=== PATIENT | male | born 1980 | race American Indian/Alaskan Native ===

== ENCOUNTER 2017-09-18 05:08 | Observation (INO) | payer OTHER, SELFPAY ==
[2017-09-18] MEDS ORDERED: Sodium Chloride 0.9% 500 ML IV ONE ×2 (05:35→05:42)
--- NOTE | 2017-09-18 05:48 | C.PDOC ---
History Of Present Illness 36 year old male presents to the ED c/o abdominal pain for the past 4 days. Patient states pain was triggered by alcohol consumption and pain has worsened ever since. Patient is s/p laparoscopy cholecystectomy earlier this year. Patient denies fever, chills, nausea, vomit, diarrhea, back pain. Time Seen by Provider: 09/18/17 05:34 Chief Complaint (Nursing): Abdominal Pain History Per: Patient History/Exam Limitations: no limitations Onset/Duration Of Symptoms: Days (4) Current Symptoms Are (Timing): Still Present Context: Other Location Of Pain/Discomfort: Diffuse Radiation Of Pain To:: None Quality Of Discomfort: "Pain" Associated Symptoms: denies: Nausea, Vomiting, Diarrhea, Urinary Symptoms Exacerbating Factors: Other Alleviating Factors: None Recent travel outside of the [place]: No Additional History Per: Patient Past Medical History Reviewed: Historical Data, Nursing Documentation, Vital Signs Vital Signs: Last Vital Signs Temp 97.8 F 09/18/17 05:14 Pulse 84 09/18/17 05:14 Resp 14 09/18/17 05:14 BP 121/92 H 09/18/17 05:14 Pulse Ox 97 09/18/17 06:38 - Medical History PMH: Pancreatitis Denies: Chronic Kidney Disease Surgical History: Cholecystectomy Family History: States: Unknown Family Hx - Social History Hx Tobacco Use: Yes Hx Alcohol Use: Yes Hx Substance Use: No - Immunization History Hx Tetanus Toxoid Vaccination: No Hx Influenza Vaccination: No Hx Pneumococcal Vaccination: No Review Of Systems Constitutional: Negative for: Fever, Chills Cardiovascular: Negative for: Chest Pain Respiratory: Negative for: Shortness of Breath Gastrointestinal: Positive for: Abdominal Pain. Negative for: Nausea, Vomiting , Diarrhea Musculoskeletal: Negative for: Back Pain Skin: Negative for: Rash Physical Exam - Physical Exam Appears: Non-toxic, No Acute Distress Skin: Normal Color, Warm, Dry Head: Atraumatic, Normacephalic Eye(s): bilateral: Normal Inspection Oral Mucosa: Moist Neck: Normal ROM, Supple Chest: Symmetrical Cardiovascular: Rhythm Regular, No Murmur Respiratory: Normal Breath Sounds, No Rales, No Rhonchi, No Wheezing Gastrointestinal/Abdominal: Soft, Tenderness (diffuse), Distention, No Guarding , No Rebound Back: No CVA Tenderness Extremity: Normal ROM, No Tenderness, No Swelling Neurological/Psych: Oriented x3, Normal Speech Gait: Steady ED Course And Treatment - Laboratory Results Result Diagrams: 09/18/17 05:53 09/18/17 05:53 O2 Sat by Pulse Oximetry: 97 (ON RA) Pulse Ox Interpretation: Normal Progress Note: Plan: - Labs. - Pepcid 20 mg IVP. - IV fluids. - Zofran 4 mg IVP Reevaluation Time: 06:23 Reassessment Condition: Unchanged (Pt continue to have moderately diffuse pain- Labs reviewed and WNL. 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 - Scribe Statement The provider has reviewed the documentation as recorded by the Scribe Prashant Pepe All medical record entries made by the Scribe were at my direction and personally dictated by me. I have reviewed the chart and agree that the record accurately reflects my personal performance of the history, physical exam, medical decision making, and the department course for this patient. I have also personally directed, reviewed, and agree with the discharge instructions and disposition. Physician Patient Turnover Patient Signed Over To: Minerva Sparrow Handoff Comments: pending Abd CT and dispo
[2017-09-18 05:56] LABS: BASO % 0.3 % (0.0-2.0); EOS % 0.4 % (0.0-4.0); HEMOGLOBIN 15.7 g/dL (12.0-18.0); LYMPH # 1.8 K/uL (1.0-4.3); MEAN CELL VOLUME 102.8 fL (80.0-94.0); MEAN CORPUSCULAR HEMOGLOBIN 36.4 pg (27.0-31.0); MEAN CORPUSCULAR HGB CONC 35.4 g/dL (33.0-37.0); MEAN PLATELET VOLUME 8.8 fL (7.2-11.7); MONO # 1.1 K/uL (0.0-0.8); MONO % 11.2 % (0.0-10.0); NEUT # 7.2 K/uL (1.8-7.0); NEUT % 70.1 % (50.0-75.0); RBC 4.32 Mil/uL (4.40-5.90); RED CELL DISTRIBUTION WIDTH 12.9 % (11.5-14.5); WHITE BLOOD COUNT 10.2 K/uL (4.8-10.8)
[2017-09-18 06:08] LABS: ALB/GLOB RATIO 1.2 (1.0-2.1); ALBUMIN 4.8 g/dL (3.5-5.0); ALT/SGPT 57 U/L (21-72); AST/SGOT 41 U/L (17-59); BLOOD UREA NITROGEN 15 mg/dL (9-20); CALCIUM 9.5 mg/dl (8.6-10.4); GFR AFRICAN-AMERICAN > 60; GFR NON-AFRICAN AMERICAN > 60; LIPASE 60 U/L (23-300)
[2017-09-18] MEDS ORDERED: Iodixanol 320 MG/ML 100 ML BOTTLE IV ONE (06:32)
[2017-09-18] MEDS ORDERED: Sodium Chloride 0.9% 1,000 ML IV ONE (07:43)
[2017-09-18] MEDS ORDERED: Sodium Chloride 0.9% 1,000 ML ONE (07:56)
[2017-09-18 08:08] LABS: SQUAMOUS EPITHIAL < 1 /hpf (0-5); URINE BILIRUBIN NEGATIVE (NEGATIVE); URINE BLOOD NEGATIVE (NEGATIVE); URINE CLARITY Clear (Clear); URINE COLOR Yellow (YELLOW); URINE GLUCOSE (UA) NORMAL (Normal); URINE LEUKOCYTE ESTERASE NEG Leu/uL (Negative); URINE PROTEIN NEGATIVE (NEGATIVE)
--- NOTE | 2017-09-18 09:34 | CT ---
PROCEDURE: CT Abdomen and Pelvis with contrast HISTORY: diffuse abd pain COMPARISON: 2012. TECHNIQUE: Contrast dose: 100 cc of Omnipaque Radiation dose: Total exam DLP = 697 mGy-cm. This CT exam was performed using one or more of the following dose reduction techniques: Automated exposure control, adjustment of the mA and/or kV according to patient size, and/or use of iterative reconstruction technique. FINDINGS: LOWER THORAX: Unremarkable. LIVER: Unremarkable. No gross lesion or ductal dilatation. GALLBLADDER AND BILE DUCTS: Status post cholecystectomy. Internal biliary stent in place with pneumobilia. PANCREAS: Unremarkable. No gross lesion or ductal dilatation. SPLEEN: Unremarkable. ADRENALS: Unremarkable. No mass. KIDNEYS AND URETERS: Unremarkable. No hydronephrosis. No solid mass. VASCULATURE: Unremarkable. No aortic aneurysm. BOWEL: Unremarkable. No obstruction. No gross mural thickening. APPENDIX: Normal appendix. PERITONEUM: Unremarkable. No free fluid. No free air. LYMPH NODES: Unremarkable. No enlarged lymph nodes. BLADDER: Unremarkable. REPRODUCTIVE: Unremarkable. BONES: No acute fracture. OTHER FINDINGS: None. IMPRESSION: Status post cholecystectomy. Internal biliary stent in place with pneumobilia.
--- NOTE | 2017-09-18 10:22 | CP.PCM.HP ---
<Jonathan Abel - Last Filed: 09/18/17 16:19> History of Present Illness - History of Present Illness History of Present Illness: PGY1 Medicine Note for Dr. Bravo Patient is a 36 year old male with a past medical history of s/p lap leana earlier this year presenting with abdominal pain for 4 days. The pain started when he woke up on Sunday after taking approximately 4 shots of alcohol the night prior. This is the first time he has drank since having his lap leana earlier this year. The pain is diffuse and cramping in nature but is most severe in the LLQ. The pain radiates towards his back at times but is otherwise constant in anterior portion of his abdomen. He is not experiencing any nausea and has not vomited. He was able to eat yesterday but reports not eating today because he is not hungry. His last bowel movement was yesterday, which was described as "completely normal". He has experienced this pain before, including 4 years ago when he was admitted for pancreatitis. Patient has no complaints except pain at this time. Denies fevers, chills, nausea, vomiting, diarrhea, constipation, chest pain, shortness of breath, palpitations, headaches , vision changes, urinary complaints, numbness or tingling. PMD: none PMH: none (takes no medications daily) PSH: s/p lab leana (earlier in 2018, surgery in [place]) Family: denies Social: Smokes half a pack per day for 10 years, denies alcohol (had 4 shots on night. This was the first time he drank since his surgery earlier this year. He was informed that he should not drink anymore alcohol previously to this.), denies illicit drug use Works for [employer]. Allergies: NKDA Present on Admission - Present on Admission Any Indicators Present on Admission: No Review of Systems - Review of Systems All systems: reviewed and no additional remarkable complaints except (as per HPI ) - Constitutional Constitutional: As Per HPI - EENT Eyes: As Per HPI Ears: As Per HPI Nose/Mouth/Throat: As Per HPI - Cardiovascular Cardiovascular: As Per HPI - Respiratory Respiratory: As Per HPI - Gastrointestinal Gastrointestinal: As Per HPI - Genitourinary Genitourinary: As Per HPI - Musculoskeletal Musculoskeletal: As Per HPI - Integumentary Integumentary: As Per HPI - Neurological Neurological: As Per HPI - Psychiatric Psychiatric: As Per HPI - Endocrine Endocrine: As Per HPI - Hematologic/Lymphatic Hematologic: As Per HPI Past Patient History - Past Medical History & Family History Past Medical History?: Yes - Past Social History Smoking Status: Heavy Smoker > 10 Cigarettes Daily - CARDIAC Hx Cardiac Disorders: No - PULMONARY Hx Respiratory Disorders: No - NEUROLOGICAL Hx Neurological Disorder: No - HEENT Hx HEENT Problems: No - RENAL Hx Chronic Kidney Disease: No - ENDOCRINE/METABOLIC Hx Endocrine Disorders: No - HEMATOLOGICAL/ONCOLOGICAL Hx Blood Disorders: No - INTEGUMENTARY Hx Dermatological Problems: No - MUSCULOSKELETAL/RHEUMATOLOGICAL Hx Falls: No - GASTROINTESTINAL Hx Pancreatitis: Yes - GENITOURINARY/GYNECOLOGICAL Hx Genitourinary Disorders: No - PSYCHIATRIC Hx Substance Use: No - SURGICAL HISTORY Hx Cholecystectomy: Yes - ANESTHESIA Hx Anesthesia: No Meds Allergies/Adverse Reactions: Allergies Allergy/AdvReac Type Severity Reaction Status Date / Time No Known Allergies Allergy Verified 09/18/17 05:19 Physical Exam - Constitutional Appears: Non-toxic, No Acute Distress - Head Exam Head Exam: ATRAUMATIC, NORMOCEPHALIC - Eye Exam Eye Exam: Normal appearance - ENT Exam ENT Exam: Mucous Membranes Moist - Neck Exam Neck exam: Negative for: Lymphadenopathy, Tenderness - Respiratory Exam Respiratory Exam: Clear to Auscultation Bilateral, NORMAL BREATHING PATTERN. absent: Accessory Muscle Use, Rales, Rhonchi, Wheezes, Respiratory Distress - Cardiovascular Exam Cardiovascular Exam: REGULAR RHYTHM, +S1, +S2 - GI/Abdominal Exam GI & Abdominal Exam: Distended, Normal Bowel Sounds, Soft, Tenderness (diffuse, LLQ worst). absent: Firm, Guarding, Hernia, Hyperactive Bowel Sounds, Rigid - Neurological Exam Neurological exam: Alert, CN II-XII Intact, Oriented x3 - Psychiatric Exam Psychiatric exam: Normal Affect, Normal Mood - Skin Skin Exam: Dry, Warm Results - Vital Signs Recent Vital Signs: Last Vital Signs Temp 98 F 09/18/17 09:15 Pulse 62 09/18/17 09:15 Resp 18 09/18/17 09:15 BP 121/92 H 09/18/17 05:14 Pulse Ox 98 09/18/17 09:15 - Labs Result Diagrams: 09/18/17 05:53 09/18/17 05:53 Labs: Laboratory Results - last 24 hr 09/18/17 09/18/17 09/18/17 05:53 05:53 07:49 WBC 10.2 D RBC 4.32 L Hgb 15.7 D Hct 44.4 MCV 102.8 H MCH 36.4 H MCHC 35.4 RDW 12.9 Plt Count 221 MPV 8.8 Neut % (Auto) 70.1 Lymph % (Auto) 18.0 L [place] % (Auto) 11.2 H Eos % (Auto) 0.4 Baso % (Auto) 0.3 Neut # (Auto) 7.2 H Lymph # (Auto) 1.8 [place] # (Auto) 1.1 H Eos # (Auto) 0.0 Baso # (Auto) 0.0 Sodium 144 Potassium 4.2 Chloride 104 Carbon Dioxide 27 Anion Gap 17 BUN 15 Creatinine 1.0 Est GFR ( Amer) > 60 Est GFR (Non-Af Amer) > 60 Random Glucose 106 Calcium 9.5 Total Bilirubin 0.8 AST 41 ALT 57 Alkaline Phosphatase 97 Total Protein 8.9 H Albumin 4.8 Globulin 4.0 H Albumin/Globulin Ratio 1.2 Lipase 60 Urine Color Yellow Urine Clarity Clear Urine pH 6.0 Ur Specific [place] 1.035 H Urine Protein Negative Urine Glucose (UA) Normal Urine Ketones Negative Urine Blood Negative Urine Nitrate Negative Urine Bilirubin Negative Urine Urobilinogen 2.0 Ur Leukocyte Esterase Neg Urine RBC (Auto) < 1 Ur Squamous Epith Cells < 1 Assessment & Plan - Assessment and Plan (Free Text) Plan: Abdominal Pain afebrile, no leukocytosis Clear liquid diet, advance as tolerated Morphine 2mg IVP q6h prn Zofran 4mg IVP q6h prn Protonix 40mg IVP daily Colace 100mg PO BID NS @100mL/hr Prophylactic Care Lovenox 40mg SC daily Protonix 40mg IVP daily DISPO: admit for observation, possible discharge in the morning if patient's symptoms improve. Case discussed with Dr. Shelly Abel PGY1 <Carroll Bravo H - Last Filed: 09/18/17 16:37> Results - Vital Signs Recent Vital Signs: Last Vital Signs Temp 98.2 F 09/18/17 16:00 Pulse 55 L 09/18/17 16:00 Resp 20 09/18/17 16:00 BP 114/72 09/18/17 16:00 Pulse Ox 100 09/18/17 16:00 - Labs Result Diagrams: 09/18/17 05:53 09/18/17 05:53 Labs: Laboratory Results - last 24 hr 09/18/17 09/18/17 09/18/17 05:53 05:53 07:49 WBC 10.2 D RBC 4.32 L Hgb 15.7 D Hct 44.4 MCV 102.8 H MCH 36.4 H MCHC 35.4 RDW 12.9 Plt Count 221 MPV 8.8 Neut % (Auto) 70.1 Lymph % (Auto) 18.0 L [place] % (Auto) 11.2 H Eos % (Auto) 0.4 Baso % (Auto) 0.3 Neut # (Auto) 7.2 H Lymph # (Auto) 1.8 [place] # (Auto) 1.1 H Eos # (Auto) 0.0 Baso # (Auto) 0.0 Sodium 144 Potassium 4.2 Chloride 104 Carbon Dioxide 27 Anion Gap 17 BUN 15 Creatinine 1.0 Est GFR ( Amer) > 60 Est GFR (Non-Af Amer) > 60 Random Glucose 106 Calcium 9.5 Total Bilirubin 0.8 AST 41 ALT 57 Alkaline Phosphatase 97 Total Protein 8.9 H Albumin 4.8 Globulin 4.0 H Albumin/Globulin Ratio 1.2 Lipase 60 Urine Color Yellow Urine Clarity Clear Urine pH 6.0 Ur Specific [place] 1.035 H Urine Protein Negative Urine Glucose (UA) Normal Urine Ketones Negative Urine Blood Negative Urine Nitrate Negative Urine Bilirubin Negative Urine Urobilinogen 2.0 Ur Leukocyte Esterase Neg Urine RBC (Auto) < 1 Ur Squamous Epith Cells < 1 Attending/Attestation - Attestation I have personally seen and examined this patient.: Yes I have fully participated in the care of the patient.: Yes I have reviewed all pertinent clinical information: Yes Notes (Text): 09/18/17 16:33 Medical attending: Patient was seen and examined by me. Agree with the above note by the resident The patient was not in any acute distress when we saw him The patient's lab work was stable. His lipase was normal limits. CT scan did not show pancreatitis. He denied fevers, denied chills. He explains that two days ago he took several shots of vodkha and this may have triggered his pain. He does not have appettie. Possible this could be really severe gastritis. I explained to the patient that we will see how he does overnight and probably discharge him sometime tommorow. thank you Carroll Bravo
[2017-09-18] MEDS ORDERED: Enoxaparin 40 mg Syringe ONE (10:40)
[2017-09-18] MEDS: Enoxaparin 40 mg Syringe SC SCH (10:53)
[2017-09-18] MEDS: Sodium Chloride 0.9% 1,000 ML IV SCH (12:09)
[2017-09-18 14:47] VITALS: RESP 20
[2017-09-19 00:43] VITALS: O2SAT 98
[2017-09-19] MEDS: Sodium Chloride 0.9% 1,000 ML IV SCH (06:00)
[2017-09-19 07:54] VITALS: BP 111/67; PULSE 60; TEMP 98.2
[2017-09-19] MEDS: Enoxaparin 40 mg Syringe SC SCH (09:55)
[2017-09-19 11:40] LABS: EOS % 0.6 % (0.0-4.0); HEMOGLOBIN 14.8 g/dL (12.0-18.0); LYMPH # 1.9 K/uL (1.0-4.3); LYMPH % 29.9 % (20.0-40.0); MEAN CELL VOLUME 103.4 fL (80.0-94.0); MEAN CORPUSCULAR HEMOGLOBIN 35.7 pg (27.0-31.0); MEAN CORPUSCULAR HGB CONC 34.5 g/dL (33.0-37.0); MEAN PLATELET VOLUME 8.8 fL (7.2-11.7); MONO # 0.7 K/uL (0.0-0.8); NEUT # 3.7 K/uL (1.8-7.0); NEUT % 58.5 % (50.0-75.0); NRBC % 0.1 % (0.0-2.0); RBC 4.14 Mil/uL (4.40-5.90); RED CELL DISTRIBUTION WIDTH 13.3 % (11.5-14.5); WHITE BLOOD COUNT 6.3 K/uL (4.8-10.8)
[2017-09-19 12:17] LABS: ALB/GLOB RATIO 1.2 (1.0-2.1); ALBUMIN 4.2 g/dL (3.5-5.0); ALT/SGPT 54 U/L (21-72); AST/SGOT 57 U/L (17-59); BLOOD UREA NITROGEN 9 mg/dL (9-20); CALCIUM 8.9 mg/dl (8.6-10.4); GFR AFRICAN-AMERICAN > 60; GFR NON-AFRICAN AMERICAN > 60
--- NOTE | 2017-09-19 13:43 | CP.PCM.DIS ---
Provider - Provider Date of Admission: 09/18/17 10:00 Attending physician: Carroll Bravo DO Hospital Course - Lab Results Lab Results: Most Recent Lab Values WBC 6.3 K/uL (4.8-10.8) 09/19/17 11:34 RBC 4.14 Mil/uL (4.40-5.90) L 09/19/17 11:34 Hgb 14.8 g/dL (12.0-18.0) 09/19/17 11:34 Hct 42.8 % (35.0-51.0) 09/19/17 11:34 MCV 103.4 fL (80.0-94.0) H 09/19/17 11:34 MCH 35.7 pg (27.0-31.0) H 09/19/17 11:34 MCHC 34.5 g/dL (33.0-37.0) 09/19/17 11:34 RDW 13.3 % (11.5-14.5) 09/19/17 11:34 Plt Count 221 K/uL (130-400) 09/19/17 11:34 MPV 8.8 fL (7.2-11.7) 09/19/17 11:34 Neut % (Auto) 58.5 % (50.0-75.0) 09/19/17 11:34 Lymph % (Auto) 29.9 % (20.0-40.0) 09/19/17 11:34 [place] % (Auto) 11.0 % (0.0-10.0) H 09/19/17 11:34 Eos % (Auto) 0.6 % (0.0-4.0) 09/19/17 11:34 Baso % (Auto) 0.0 % (0.0-2.0) 09/19/17 11:34 Neut # (Auto) 3.7 K/uL (1.8-7.0) 09/19/17 11:34 Lymph # (Auto) 1.9 K/uL (1.0-4.3) 09/19/17 11:34 [place] # (Auto) 0.7 K/uL (0.0-0.8) 09/19/17 11:34 Eos # (Auto) 0.0 K/uL (0.0-0.7) 09/19/17 11:34 Baso # (Auto) 0.0 K/uL (0.0-0.2) 09/19/17 11:34 Sodium 144 mmol/L (132-148) 09/19/17 11:34 Potassium 4.0 mmol/L (3.6-5.2) 09/19/17 11:34 Chloride 109 mmol/L (98-107) H 09/19/17 11:34 Carbon Dioxide 24 mmol/L (22-30) 09/19/17 11:34 Anion Gap 15 (10-20) 09/19/17 11:34 BUN 9 mg/dL (9-20) 09/19/17 11:34 Creatinine 0.9 mg/dL (0.8-1.5) 09/19/17 11:34 Est GFR ( Amer) > 60 09/19/17 11:34 Est GFR (Non-Af Amer) > 60 09/19/17 11:34 Random Glucose 113 mg/dL (75-110) H 09/19/17 11:34 Calcium 8.9 mg/dl (8.6-10.4) 09/19/17 11:34 Total Bilirubin 0.6 mg/dL (0.2-1.3) 09/19/17 11:34 AST 57 U/L (17-59) 09/19/17 11:34 ALT 54 U/L (21-72) 09/19/17 11:34 Alkaline Phosphatase 100 U/L (38-126) 09/19/17 11:34 Total Protein 7.6 g/dL (6.3-8.3) 09/19/17 11:34 Albumin 4.2 g/dL (3.5-5.0) 09/19/17 11:34 Globulin 3.4 gm/dL (2.2-3.9) 09/19/17 11:34 Albumin/Globulin Ratio 1.2 (1.0-2.1) 09/19/17 11:34 Lipase 60 U/L (23-300) 09/18/17 05:53 Urine Color Yellow (YELLOW) 09/18/17 07:49 Urine Clarity Clear (Clear) 09/18/17 07:49 Urine pH 6.0 (5.0-8.0) 06/12/18 07:49 Ur Specific [place] 1.035 (1.003-1.030) H 09/18/17 07:49 Urine Protein Negative mg/dL (NEGATIVE) 09/18/17 07:49 Urine Glucose (UA) Normal mg/dL (Normal) 09/18/17 07:49 Urine Ketones Negative mg/dL (NEGATIVE) 09/18/17 07:49 Urine Blood Negative (NEGATIVE) 09/18/17 07:49 Urine Nitrate Negative (NEGATIVE) 09/18/17 07:49 Urine Bilirubin Negative (NEGATIVE) 09/18/17 07:49 Urine Urobilinogen 2.0 mg/dL (0.2-1.0) 09/18/17 07:49 Ur Leukocyte Esterase Neg Siddharth/uL (Negative) 09/18/17 07:49 Urine RBC (Auto) < 1 /hpf (0-3) 09/18/17 07:49 Ur Squamous Epith Cells < 1 /hpf (0-5) 09/18/17 07:49 Discharge Exam - Head Exam Head Exam: ATRAUMATIC, NORMOCEPHALIC Discharge Plan - Follow Up Plan Condition: STABLE Disposition: HOME/ ROUTINE Instructions: Smoking: Not Just Harmful to Your Lungs and Heart, Quitting Smoking, Acute Abdominal Pain (DC) Additional Instructions: Patient is to be discharged home per Dr. Bravo. Patient is to follow up with his primary care physician within one week of discharge. If patient does not have a primary care physician, he can follow up with the [facility] located in the [facility]. Please call and scheduled an appointment. Patient has been given no new medications. Please avoid all alcohol use. If patient experiences any new or worsening symptoms, please go directly to the nearest emergency department. Referrals: [facility] at [facility] [Outside] - 1 Week
[2017-09-21] MEDS ORDERED: Pneumococcal 23-Valent Vaccine IM ONE (10:00)
== END 2017-09-19 14:39 | disposition home or self-care (01) ==
LOC: C.ER 05:08 → C.9E 10:00 → C.3T 13:51
PROVIDERS: ADMIT Hospitalist; ATTEND Hospitalist
DX: R10.9 Unspecified abdominal pain (principal); Z90.49 Acquired absence of other specified parts of digestive tract; F17.210 Nicotine dependence, cigarettes, uncomplicated
CPT/HCPCS: 36415; 74177; 80053; 81001; 83690; 85025; 96360; 96374; 99285; C9113; G0378; J1885; J2270; J7030; J7040; Q9967

== ENCOUNTER 2017-10-03 15:07 | Emergency (ER) | payer OTHER ==
[2017-10-03 15:32] VITALS: BMI 29.0
[2017-10-03] MEDS ORDERED: Sodium Chloride 0.9% 1,000 ML IV ONE (15:43)
--- NOTE | 2017-10-03 16:18 | C.PDOC ---
History Of Present Illness 36 y/o male presents to ED with c/o abdominal pain for "few days". Patient was previously diagnosed with pancreatitis and has history of ETOH abuse, states he has not been drinking. Patient denies fever, chills, nausea, vomiting or any other complaints at this time. Time Seen by Provider: 10/03/17 15:27 Chief Complaint (Nursing): Abdominal Pain History Per: Patient History/Exam Limitations: no limitations Onset/Duration Of Symptoms: Days Current Symptoms Are (Timing): Still Present Past Medical History Reviewed: Historical Data, Nursing Documentation, Vital Signs Vital Signs: Last Vital Signs Temp 97.4 F L 10/03/17 17:48 Pulse 60 10/03/17 17:48 Resp 20 10/03/17 17:48 BP 122/78 10/03/17 17:48 Pulse Ox 100 10/03/17 18:24 - Medical History PMH: Pancreatitis Surgical History: Cholecystectomy Family History: States: No Known Family Hx - Social History Hx Tobacco Use: Yes Hx Alcohol Use: Yes Hx Substance Use: No - Immunization History Hx Tetanus Toxoid Vaccination: Yes Hx Influenza Vaccination: No Hx Pneumococcal Vaccination: No Review Of Systems Constitutional: Negative for: Fever, Chills Gastrointestinal: Positive for: Abdominal Pain. Negative for: Nausea, Vomiting Skin: Negative for: Rash Physical Exam - Physical Exam Appears: Non-toxic, No Acute Distress Skin: Warm, Dry, No Rash Head: Atraumatic, Normacephalic Eye(s): bilateral: Normal Inspection Oral Mucosa: Moist Neck: Normal ROM, Supple Cardiovascular: Rhythm Regular Respiratory: Normal Breath Sounds, No Rales, No Rhonchi, No Wheezing Gastrointestinal/Abdominal: Soft, Tenderness (upper abdomen), No Guarding, No Rebound Back: No CVA Tenderness, No Paraspinal Tenderness Neurological/Psych: Oriented x3, Normal Speech ED Course And Treatment - Laboratory Results Result Diagrams: 10/03/17 17:02 10/03/17 17:02 Lab Interpretation: Normal O2 Sat by Pulse Oximetry: 100 (RA) Pulse Ox Interpretation: Normal Progress Note: Treated with IVF NSS and toradol. On re-evaluation abdomen soft , in no distress Reassessment Condition: Improved Disposition Counseled Patient/Family Regarding: Studies Performed, Diagnosis, Need For Followup, Rx Given - Disposition Referrals: Daryl Mayen MD [Staff Provider] - [facility] [Outside] [facility] [Outside] Disposition: HOME/ ROUTINE Disposition Time: 18:30 Condition: STABLE Prescriptions: Famotidine [Pepcid AC] 20 mg PO BID #20 tablet Instructions: Acute Abdomen (Belly Pain), Child (DC) Forms: [facility] (French) - POA Present On Arrival: None - Clinical Impression Clinical Impression: Abdominal pain - PA / CLINICAL MASSAGE THERAPIST / Resident Statement MD/DO has reviewed & agrees with the documentation as recorded. - Scribe Statement The provider has reviewed the documentation as recorded by the Scribsharan Luna All medical record entries made by the Dominick were at my direction and personally dictated by me. I have reviewed the chart and agree that the record accurately reflects my personal performance of the history, physical exam, medical decision making, and the department course for this patient. I have also personally directed, reviewed, and agree with the discharge instructions and disposition.
[2017-10-03] MEDS ORDERED: Sodium Chloride 0.9% 1,000 ML ONE (17:08)
[2017-10-03 17:12] LABS: BASO % 0.2 % (0.0-2.0); EOS # 0.1 K/uL (0.0-0.7); EOS % 0.5 % (0.0-4.0); HEMOGLOBIN 15.5 g/dL (12.0-18.0); LYMPH # 2.1 K/uL (1.0-4.3); LYMPH % 21.3 % (20.0-40.0); MEAN CELL VOLUME 101.7 fL (80.0-94.0); MEAN CORPUSCULAR HGB CONC 35.4 g/dL (33.0-37.0); MONO # 0.9 K/uL (0.0-0.8); MONO % 8.9 % (0.0-10.0); NEUT # 6.8 K/uL (1.8-7.0); NEUT % 69.1 % (50.0-75.0); RBC 4.3 Mil/uL (4.40-5.90); RED CELL DISTRIBUTION WIDTH 12.8 % (11.5-14.5); WHITE BLOOD COUNT 9.9 K/uL (4.8-10.8)
[2017-10-03 17:41] LABS: SQUAMOUS EPITHIAL < 1 /hpf (0-5); URINE BILIRUBIN NEGATIVE (NEGATIVE); URINE BLOOD NEGATIVE (NEGATIVE); URINE CLARITY Clear (Clear); URINE COLOR Yellow (YELLOW); URINE GLUCOSE (UA) NORMAL (Normal); URINE LEUKOCYTE ESTERASE NEG Leu/uL (Negative); URINE PROTEIN NEGATIVE (NEGATIVE)
[2017-10-03 17:47] LABS: ALB/GLOB RATIO 1.2 (1.0-2.1); ALBUMIN 4.8 g/dL (3.5-5.0); ALT/SGPT 100 U/L (21-72); AST/SGOT 60 U/L (17-59); BLOOD UREA NITROGEN 14 mg/dL (9-20); CALCIUM 9.5 mg/dl (8.6-10.4); GFR AFRICAN-AMERICAN > 60; GFR NON-AFRICAN AMERICAN > 60; LIPASE 72 U/L (23-300)
[2017-10-03 17:49] VITALS: BP 122/78; PULSE 60; RESP 20; TEMP 97.4
[2017-10-03] MEDS ORDERED: Alum-Mag Hydrox-Simethicone Susp (30 mL) PO STA (18:01)
[2017-10-03 18:23] VITALS: O2SAT 100
[2017-10-03] MEDS ORDERED: Alum-Mag Hydrox-Simethicone Susp (30 mL) ONE (18:28)
== END 2017-10-03 18:54 | disposition home or self-care (01) ==
LOC: C.ER 15:07
DX: R10.9 Unspecified abdominal pain (principal)
CPT/HCPCS: 80053; 81001; 83690; 85025; 96361; 96374; 99283; J1885; J7030

== ENCOUNTER 2018-08-27 11:24 | Emergency (ER) | payer OTHER ==
[2018-08-27 11:24] VITALS: BMI 29.0
[2018-08-27 11:33] VITALS: PULSE 59; RESP 20
[2018-08-27] MEDS ORDERED: Sodium Chloride 0.9% 1,000 ML IV ONE (13:28)
--- NOTE | 2018-08-27 13:35 | C.PDOC ---
History Of Present Illness 37 year old male presents to the emergency department with complaints of cough for one week, and fever, body aches, and upper abdominal pain for the last two days. Patient reports associated diarrhea and vomiting. Patient reports a h istory of gallbladder surgery. Time Seen by Provider: 08/27/18 12:22 Chief Complaint (Nursing): Abdominal Pain History Per: Patient History/Exam Limitations: no limitations Onset/Duration Of Symptoms: Days (2) Current Symptoms Are (Timing): Still Present Associated Symptoms: Fever, Cough, Vomiting, Diarrhea Past Medical History Reviewed: Historical Data, Nursing Documentation, Vital Signs Vital Signs: Last Vital Signs Temp 97.7 F 08/27/18 11:26 Pulse 59 L 08/27/18 11:26 Resp 20 08/27/18 11:26 BP 131/85 08/27/18 11:26 Pulse Ox 97 08/27/18 11:26 Primary Care Provider: FAMILY PROVIDER,NO - Medical History PMH: No Chronic Diseases, Pancreatitis Denies: Chronic Kidney Disease Surgical History: Cholecystectomy Family History: States: No Known Family Hx - Social History Hx Tobacco Use: Yes Hx Alcohol Use: Yes Hx Substance Use: No - Immunization History Hx Tetanus Toxoid Vaccination: Yes Hx Influenza Vaccination: No Hx Pneumococcal Vaccination: No Review Of Systems Except As Marked, All Systems Reviewed And Found Negative. Constitutional: Positive for: Fever, Weakness. Negative for: Chills Cardiovascular: Negative for: Chest Pain Respiratory: Positive for: Cough. Negative for: Shortness of Breath Gastrointestinal: Positive for: Vomiting, Abdominal Pain, Diarrhea. Negative for: Nausea Neurological: Negative for: Weakness, Numbness Physical Exam - Physical Exam Appears: Non-toxic, No Acute Distress Skin: Normal Color, Warm, Dry Head: Atraumatic, Normacephalic Eye(s): bilateral: Normal Inspection, PERRL, EOMI Oral Mucosa: Moist Neck: Normal, Supple Chest: Symmetrical, No Tenderness Cardiovascular: Rhythm Regular, No Murmur Respiratory: No Rales, No Rhonchi, No Wheezing Gastrointestinal/Abdominal: Soft, No Tenderness, No Guarding, No Rebound Extremity: Normal ROM Neurological/Psych: Oriented x3, Normal Speech, Normal Cognition ED Course And Treatment - Laboratory Results Result Diagrams: 08/27/18 13:35 08/27/18 13:35 O2 Sat by Pulse Oximetry: 97 (RA) Pulse Ox Interpretation: Normal - Other Rad XR Obstructive Series X-Ray: Viewed By Me, Read By Radiologist Interpretation: IMPRESSION: Unremarkable radiographs of chest and abdomen. No evidence of mechanical bowel obstruction. Medical Decision Making Medical Decision Making: Plan: Chemistry CBC XR Obstructive Series Pepcid 20mg IVP NaCl IV Fluids Toradol 30mg IVP Zofran 4mg IVP Urinalysis On re-exam, the patient reports improvement of symptoms. Lungs are CTA, heart is RRR, abdomen is soft, non-tender and tolerating PO well. Pt is ambulatory in the ED with steady gait. Follow up with the medical doctor/clinic within 1-2 days. Return if worsened. Disposition - Disposition Referrals: Mason Bernabe MD [Staff Provider] - Disposition: HOME/ ROUTINE Disposition Time: 18:03 Condition: STABLE Additional Instructions: Follow up with the medical doctor/clinic within 1-2 days. Return if worsened. 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 - Scribe Statement The provider has reviewed the documentation as recorded by the Scribe (Medardo Garcia) All medical record entries made by the Scribe were at my direction and personally dictated by me. I have reviewed the chart and agree that the record accurately reflects my personal performance of the history, physical exam, medical decision making, and the department course for this patient. I have also personally directed, reviewed, and agree with the discharge instructions and disposition.
[2018-08-27 13:39] LABS: BASO % 0.3 % (0.0-2.0); EOS % 0.2 % (0.0-4.0); HEMOGLOBIN 15.3 g/dL (12.0-18.0); LYMPH % 18.3 % (20.0-40.0); MEAN CORPUSCULAR HEMOGLOBIN 37.1 pg (27.0-31.0); MEAN PLATELET VOLUME 9.2 fL (7.2-11.7); MONO # 1.4 K/uL (0.0-0.8); MONO % 12.6 % (0.0-10.0); NEUT # 7.5 K/uL (1.8-7.0); NEUT % 68.6 % (50.0-75.0); RBC 4.13 Mil/uL (4.40-5.90); RED CELL DISTRIBUTION WIDTH 12.9 % (11.5-14.5); WHITE BLOOD COUNT 10.9 K/uL (4.8-10.8)
[2018-08-27 13:40] LABS: MEAN CELL VOLUME 105.9 fL (80.0-94.0)
[2018-08-27] MEDS ORDERED: Sodium Chloride 0.9% 1,000 ML ONE (13:41)
[2018-08-27 13:50] LABS: ALB/GLOB RATIO 1.1 (1.0-2.1); ALBUMIN 4.4 g/dL (3.5-5.0); ALT/SGPT 39 U/L (21-72); AST/SGOT 34 U/L (17-59); BLOOD UREA NITROGEN 11 mg/dL (9-20); CALCIUM 9.8 mg/dl (8.6-10.4); GFR NON-AFRICAN AMERICAN > 60
[2018-08-27 13:52] LABS: LIPASE < 10 U/L (23-300)
--- NOTE | 2018-08-27 14:31 | RAD ---
Date of service: 08/27/2018 PROCEDURE: Radiographs of the chest and abdomen (obstructive series) HISTORY: abd pain,cough COMPARISON: No prior. TECHNIQUE: AP radiograph of the chest, with upright and supine radiographs of the abdomen. 3 views obtained. FINDINGS: CHEST: Lungs: There is poor expiratory effort with mild crowding at the lung bases. Cardiovascular: Normal size heart. No pulmonary vascular congestion. No aortic atherosclerotic calcification present Pleura: No pleural fluid. No pneumothorax. Other findings: None. ABDOMEN AND PELVIS: Bowel: Unremarkable bowel gas pattern. No evidence of mechanical obstruction. Scattered air within the small and large bowel is noted without fluid level. Free air: None. Bones: Unremarkable. Other findings: Surgical clips are seen in the right abdomen. Biliary stent is also seen in the right upper abdomen. IMPRESSION: Unremarkable radiographs of chest and abdomen. No evidence of mechanical bowel obstruction.
[2018-08-27] MEDS ORDERED: Morphine 4 MG/ML VIAL ONE (15:23)
[2018-08-27 15:25] VITALS: BP 135/85; TEMP 99.1
[2018-08-27] MEDS ORDERED: Iodixanol 320 MG/ML 100 ML BOTTLE IV ONE (16:12)
--- NOTE | 2018-08-27 17:36 | CT ---
Date of service: 08/27/2018 PROCEDURE: CT Abdomen and Pelvis with contrast HISTORY: fever, abd pain, vomiting COMPARISON: CT of the abdomen and pelvis with contrast performed 09/18/17 TECHNIQUE: Contrast dose: 100 mL Visipaque 320 IV Radiation dose: Total exam DLP = 1245.37 mGy-cm. This CT exam was performed using one or more of the following dose reduction techniques: Automated exposure control, adjustment of the mA and/or kV according to patient size, and/or use of iterative reconstruction technique. FINDINGS: LOWER THORAX: Bilateral lower lobe infiltrates suspicious for pneumonia. No visible pleural effusion or pneumothorax. LIVER: Hypoattenuation of the liver compatible with hepatic steatosis. GALLBLADDER AND BILE DUCTS: Cholecystectomy. CBD stent. PANCREAS: Pancreatic atrophy. SPLEEN: Unremarkable. ADRENALS: Left adrenal gland hypertrophy. The right adrenal gland appears unremarkable. KIDNEYS AND URETERS: The kidneys enhance symmetrically. No hydronephrosis or obstructing calculus identified. 7 mm right renal hypodensity, possibly angiomyolipoma. VASCULATURE: No aortic aneurysm. No atherosclerotic calcification or mural plaque present. BOWEL: Stomach is nondistended. Gastric wall thickening. Lack of oral contrast limits evaluation for bowel pathology. Bowel loops appear within normal limits of caliber without evidence of obstruction. APPENDIX: The appendix appears within normal limits of caliber. No secondary signs of acute appendicitis. PERITONEUM: No significant free fluid. No definite free air. LYMPH NODES: Sub cm mesenteric lymph nodes, nonspecific. BLADDER: Unremarkable. REPRODUCTIVE: Unremarkable. BONES: Degenerative changes. OTHER FINDINGS: None. IMPRESSION: Bilateral lower lobe infiltrates suspicious for pneumonia. Recommend follow-up to assess for complete resolution. Cholecystectomy. CBD stent. Hypoattenuation of the liver compatible with hepatic steatosis. Pancreatic atrophy. Left adrenal gland hypertrophy. 7 mm right renal hypodensity, possibly angiomyolipoma. Sub cm mesenteric lymph nodes, nonspecific. Gastric wall thickening; correlate clinically for possibility of gastritis. Endoscopy may be considered. Additional findings as above.
[2018-08-27 18:07] VITALS: O2SAT 97
== END 2018-08-27 18:24 | disposition home or self-care (01) ==
LOC: C.ER 11:24
DX: J18.9 Pneumonia, unspecified organism (principal); K29.70 Gastritis, unspecified, without bleeding; Z90.49 Acquired absence of other specified parts of digestive tract
CPT/HCPCS: 74022; 74177; 80053; 83690; 85025; 96361; 96374; 96375; 99285; J1885; J2270; J2405; J7030; Q9967